=== PATIENT | female | born 1970 | race American Indian/Alaskan Native ===

== ENCOUNTER 2017-07-13 08:32 | Outpatient (CLI) | payer BC ==
--- NOTE | 2017-07-14 10:00 | Mammography Report ---
Bilateral mammogram: Compared to 03/09/15. CAD study utilized. Findings: Scattered glandular parenchyma bilaterally. New high density 3 mm asymmetry noted at inner mid left breast and subareolar area left breast and upper posterior left breast. No microcalcification. Benign axillary nodes. Impression: New focal dense asymmetries identified in the left breast. Recommend spot mag and if necessary sonographic examination. BI-RADS CATEGORY: 0 = Needs additional imaging evaluation ACR BI-RADS MAMMOGRAPHIC CODES: 0 = Needs additional imaging evaluation; 1 = Negative; 2 = Benign; 3 = Probably benign; 4 = Suspicious; 5 = Malignant; 6 = Known biopsy-proven malignancy COMMENT: 1. Dense breast tissue, i.e., adenosis, fibrocystic changes, etc., may obscure an underlying neoplasm. 2. Approximately 10% of cancers are not detected with mammography. 3. A negative mammography report should not delay biopsy if a clinically suspicious mass is present. COMMENT: Patient follow-up letters are generated in [employer].
== END 2017-07-13 08:33 | disposition home or self-care (01) ==
LOC: MAMMO 08:32
PROVIDERS: ATTEND Obstetrics & Gynecology
DX: Z12.31 Encounter for screening mammogram for malignant neoplasm of breast (principal)
CPT/HCPCS: 77067

== ENCOUNTER 2017-09-11 10:18 | Outpatient (CLI) | payer BC ==
--- NOTE | 2017-09-17 08:20 | Ultrasound Report ---
ULTRASOUND PELVIC LIMITED: 09/14/17 CLINICAL: Uterine fibroids. FINDINGS: The patient presented for a sonohysterogram. The patient was prepped with Betadine and I attempted to cannulate the cervix with a balloon catheter. However, I was unsuccessful in cannulating the cervix and the sonohysterogram was not performed. Several large lower uterine segment fibroids were identified. The largest measures 3.9 cm., IMPRESSION: Uterine leiomyomata an unsuccessful attempt at performing a sonohysterogram.
== END 2017-09-11 10:19 | disposition home or self-care (01) ==
LOC: SPVWC 10:18
PROVIDERS: ATTEND Obstetrics & Gynecology
DX: D25.2 Subserosal leiomyoma of uterus (principal)
CPT/HCPCS: 76857

== ENCOUNTER 2021-03-18 11:45 | Outpatient (CLI) | payer BC ==
--- NOTE | 2021-03-21 11:59 | Mammography Report ---
DIGITAL SCREENING MAMMOGRAM WITH CAD, 03/18/2021 CLINICAL INFORMATION / INDICATION: Routine screening mammography. SCREENING MAMMOGRAM TECHNIQUE: Digital bilateral 2D mammography was obtained in the craniocaudal and mediolateral obliqu e projections. This examination was interpreted with the benefit of Computer-Aided Detection analysis . COMPARISON: 03/09/2015 and 07/13/2017. FINDINGS: Breast Density: The breasts are heterogeneously dense, which may obscure small masses. No dominant mass, suspicious calcifications, or architectural distortion in either breast. IMPRESSION: No mammographic evidence of malignancy. Follow up recommendation: Routine yearly BI-RADS Category 1: Negative. A "normal" or negative report should not discourage follow up or biopsy of a clinically significant f inding. A written summary of these findings will be mailed to the patient. The patient will be entered into a mammography reporting system which will generate a reminder letter for the patient's next appointmen t at the appropriate interval. The [employer] recommends yearly mammograms starting at age 40 and continuing as l lm as a woman is in good health. Breast MRI is recommended for women with an approximate 20-25% or greater lifetime risk of breast cancer, including women with a strong family history of breast or ova liam cancer or who have been treated for Hodgkin's disease. Signer Name: Faraz Zhou MD Signed: 03/21/2021 11:55 AM Workstation Name: [id number]
== END 2021-03-18 11:46 | disposition home or self-care (01) ==
LOC: MAMMO 11:45
PROVIDERS: ATTEND Internal Medicine
DX: Z12.31 Encounter for screening mammogram for malignant neoplasm of breast (principal)
CPT/HCPCS: 77067